=== PATIENT | female | born 1960 | race Caucasian/White ===

== ENCOUNTER 2016-12-10 09:21 | Day surgery (SDC) | payer OTHER ==
[~2016-12-10] VITALS: Ht 167.6 cm; Wt 84.4 kg
[~2016-12-10 09:21] MED LIST: BUSPIRONE HCL10 MG PO; CYMBALTA30 MG PO; CYMBALTA60 MG PO; ELAVIL25 MG PO; HYDROCODONE BT1 EACH PO; IBUPROFEN800 MG PO; IMITREX100 MG PO; KLONOPIN0.5 M1 PO; PERCOCET 5/31 TABLET PO
== END 2016-12-10 10:55 | disposition home or self-care (01) ==
LOC: PAIN 09:21 → SDC 10:15 → PAIN 10:15
DX: M54.16 Radiculopathy, lumbar region (principal); M47.896 Other spondylosis, lumbar region; M46.1 Sacroiliitis, not elsewhere classified; F41.9 Anxiety disorder, unspecified; K21.9 Gastro-esophageal reflux disease without esophagitis
CPT/HCPCS: J1030; J2250; J3010; S0020

== ENCOUNTER 2016-12-17 06:55 | Day surgery (SDC) | payer OTHER ==
[~2016-12-17] VITALS: Ht 167.6 cm; Wt 84.4 kg
== END 2016-12-17 08:40 | disposition home or self-care (01) ==
LOC: PAIN 06:55 → SDC 08:00 → PAIN 08:40
PROC: 3E0T3CZ (ICD-10-PCS; principal; 2016-12-17)
PROC: 3E0T33Z Introduction of Anti-inflammatory into Peripheral Nerves and Plexi, Percutaneous Approach (ICD-10-PCS; principal; 2016-12-17)
DX: M47.26 Other spondylosis with radiculopathy, lumbar region (principal); F41.9 Anxiety disorder, unspecified; G89.29 Other chronic pain; M54.5 Low back pain; B18.2 Chronic viral hepatitis C; F11.90 Opioid use, unspecified, uncomplicated; Z85.41 Personal history of malignant neoplasm of cervix uteri; Z88.1 Allergy status to other antibiotic agents; Z88.2 Allergy status to sulfonamides
CPT/HCPCS: J1030; J2250; J3010; S0020

== ENCOUNTER 2016-12-19 19:19 | Emergency (ER) | payer OTHER ==
[~2016-12-19] VITALS: Ht 167.6 cm; Wt 83.8 kg
[2016-12-19 20:28] LABS: HEMATOCRIT 45.6 % (36.0-46.0); MCH 30.7 PG (29.0-34.0); MCHC 33.6 G/DL (30.0-36.0); MCV 91.6 FL (83-99); MEAN PLAT.VOLUME 9.2 uM^3 (9.5-12.4); PLATELET COUNT 264 K/uL (156-360); RBC DIS.WIDTH-CV 12.3 % (11.8-14.6); RBC DIS.WIDTH-SD 41.2 % (39-53); RED BLOOD COUNT 4.98 M/uL (3.80-5.20); WHITE BLOOD COUNT 12.2 K/uL (4.1-10.2)
[2016-12-19 20:47] LABS: CHLORIDE 108 mEq/L (99-109); POTASSIUM 4.2 mEq/L (3.7-5.4); SODIUM 139 mEq/L (136-147)
[2016-12-19 20:50] LABS: GLUCOSE 106 mg/dL (70-99)
[2016-12-19 20:51] LABS: ANION GAP 11 MEQ/L (2-14)
[2016-12-19 20:52] LABS: TOTAL BILIRUBIN 0.3 mg/dL (0.0-1.0)
[2016-12-19 20:53] LABS: ALKALINE PHOSPHATASE 111 IU/L (3-129); GFR ESTIMATE (CALCULATED) > 59 mL/min/
[2016-12-19 20:54] LABS: UREA NITROGEN (BUN) 18 mg/dL (9-23)
[2016-12-19] MEDS ORDERED: PERCOCET 5/31 TABLET PO (21:12)
[2016-12-19 21:58] VITALS: BP 146/94
== END 2016-12-19 22:20 | disposition home or self-care (01) ==
LOC: EME 19:19
DX: G89.18 Other acute postprocedural pain (principal); M54.41 Lumbago with sciatica, right side; G89.29 Other chronic pain; Z79.891 Long term (current) use of opiate analgesic; Z87.891 Personal history of nicotine dependence
CPT/HCPCS: 80053; 81003; 85027; 99281; 99284; J3010; J8540

== ENCOUNTER 2018-03-27 15:18 | Emergency (ER) | payer OTHER | END 2018-03-27 16:33 | disposition left against medical advice (07) | LOC: EME 15:18 | DX: S61.412A Laceration without foreign body of left hand, initial encounter (principal); S61.411A Laceration without foreign body of right hand, initial encounter; Z53.21 Procedure and treatment not carried out due to patient leaving prior to being seen by health care provider ==